=== PATIENT | male | born 1965 | race African-American/Black ===

== ENCOUNTER 2018-04-11 09:48 | Inpatient (IN) | payer OTHER ==
[~2018-04-11 09:48] MED LIST: EPHEDrine SULFATE 50 MG/5 ML SYG; PROPOFOL 200 MG INJ
[2018-04-11] MEDS ORDERED: VANCOMYCIN 1 GM (PMX) 250 ML (10:44)
[2018-04-11] MEDS ORDERED: GELATIN SIZE 100 SPONGE (11:22)
[2018-04-11] MEDS ORDERED: MIDAZOLAM 1 MG/ML 2 ML INJ (11:57)
[2018-04-11] MEDS ORDERED: SUCCINYLCHOLINE CHLORIDE 100 MG/5 ML SYG IV (11:59)
[2018-04-11] MEDS ORDERED: PROPOFOL 20 ML (11:59)
[2018-04-11] MEDS ORDERED: ROCURONIUM 50 MG INJ ×2 (11:59→13:16)
[2018-04-11] MEDS ORDERED: LIDOCAINE 2% (SDV) 5 ML INJ (11:59)
[2018-04-11] MEDS ORDERED: CEFAZOLIN 1 GM INJ (11:59)
[2018-04-11] MEDS ORDERED: NALOXONE (0.4 MG/ML) INJ IV (12:00)
[2018-04-11] MEDS ORDERED: DIPHENHYDRAMINE 50 MG INJ IV (12:00)
[2018-04-11] MEDS ORDERED: ZOLPIDEM 5 MG TAB PO (12:00)
[2018-04-11] MEDS ORDERED: CYCLOBENZAPRINE 10 MG TAB PO (12:00)
[2018-04-11] MEDS ORDERED: HYDROmorphONE 0.5 MG/0.5 ML SYG IV (12:00)
[2018-04-11] MEDS ORDERED: AL HYDROX/MG HYDROX/SIMETH 30 ML CUP PO (12:00)
[2018-04-11] MEDS ORDERED: ACETAMINOPHEN 325 MG TAB PO (12:00)
[2018-04-11] MEDS ORDERED: BISACODYL 10 MG SUPP PR (12:00)
[2018-04-11] MEDS ORDERED: ONDANSETRON 4 MG INJ IV (12:00)
[2018-04-11] MEDS ORDERED: CEPASTAT LOZENGE MT (12:00)
[2018-04-11] MEDS: HEPARIN 1000 UNITS/ML 10 ML INJ ×2 (13:05→13:11)
[2018-04-11] MEDS: BUPIVACAINE 0.25%/EPI (MDV) 50 ML VIAL INJ (13:11)
[2018-04-11] MEDS ORDERED: PHENYLephrine (100 MCG/ML) 5ML SYG (13:22)
[2018-04-11] MEDS: SURGIFOAM POWDER 1 GM KIT (13:44)
[2018-04-11] MEDS: THROMBIN 5000 UNIT VIAL (13:45)
[2018-04-11] MEDS: POLYMYXIN/BACITRACIN 1L IRRIG (13:46)
[2018-04-11] MEDS: CA CHLORIDE 10% 10 ML SYRINGE (13:52)
[2018-04-11] MEDS: FENTAnyl 50 MCG/ML VIAL (15:12)
[2018-04-11] MEDS: BUPIVACAINE 0.25% (MPF) 30 ML INJ (15:13)
[2018-04-11] MEDS ORDERED: FAMOTIDINE 20 MG INJ (15:16)
[2018-04-11] MEDS ORDERED: METOCLOPRAMIDE 10 MG INJ (15:16)
[2018-04-11] MEDS ORDERED: ONDANSETRON 4 MG INJ (15:16)
[2018-04-11] MEDS ORDERED: SUGAMMADEX SODIUM 200 MG/2 ML VIAL IV (15:21)
[2018-04-11] MEDS ORDERED: HYDROmorphONE 1 MG/5 ML IV SYRINGE IV ×3 (16:00)
[2018-04-11] MEDS ORDERED: LABETALOL HCL 20MG INJ IV (16:00)
[2018-04-11] MEDS ORDERED: MEPERIDINE 25 MG INJ IV (16:00)
[2018-04-11] MEDS ORDERED: FENTAnyl 50 MCG/ML VIAL IV ×2 (16:00)
[2018-04-11] MEDS ORDERED: hydrALAzine 20 MG INJ IV (16:00)
[2018-04-11] MEDS ORDERED: PROCHLORPERAZINE 10 MG INJ IV (16:00)
[2018-04-11] MEDS: HYDROmorphONE 0.2 MG/ML PCA IV (16:08)
[2018-04-11] MEDS: FENTAnyl 50 MCG/ML VIAL IV (16:14)
[2018-04-11] MEDS: ONDANSETRON 4 MG INJ IV (16:14)
[2018-04-11] MEDS: DIPHENHYDRAMINE 50 MG INJ IV (16:14)
[2018-04-11] MEDS ORDERED: GLUCOSE GEL 15 GRAM TUBE PO ×2 (17:00)
[2018-04-11] MEDS ORDERED: LISINOPRIL 20 MG TAB PO (17:00)
[2018-04-11] MEDS ORDERED: DEXTROSE 50% 50 ML SYRINGE IV ×2 (17:00)
[2018-04-11] MEDS ORDERED: GLUCAGON 1 MG INJ IM (17:00)
[2018-04-11] MEDS ORDERED: GLUCOSE GEL 15 GRAM TUBE BUCCAL (17:00)
[2018-04-11] MEDS ORDERED: AMLODIPINE 5 MG TAB PO (17:00)
[2018-04-11] MEDS: INSULIN ASPART [NOVOLOG] 3 ML PEN SC (17:25)
[2018-04-11] MEDS: 1/2 NS + KCL 20 MEQ 1,000 ML IV ×2 (20:26→22:00)
[2018-04-11] MEDS: AMLODIPINE 5 MG TAB PO (20:27)
[2018-04-11] MEDS: ATORVASTATIN 20 MG TAB PO (20:27)
[2018-04-11] MEDS: LISINOPRIL 20 MG TAB PO (20:27)
[2018-04-11] MEDS: DOCUSATE SODIUM 100 MG CAP PO (20:28)
[2018-04-11] MEDS: VANCOMYCIN 1 GM (PMX) 250 ML IVPB (23:15)
[2018-04-12] MEDS: ACCU-CHEK XX (01:45)
[2018-04-12 04:52] LABS: ADD MAN DIFF? NO
[2018-04-12 04:57] LABS: WHITE BLOOD COUNT 14.1 10^3/ul (4.8-10.8)
[2018-04-12 04:57] LABS: ABNORMAL IP MESSAGE 1; BASOPHILS % 0.2 % (0.0-2.0); EOSINOPHILS # 0.1 10^3/ul (0.0-0.5); EOSINOPHILS % 0.8 % (0.0-7.0); HEMATOCRIT 33.7 % (42.0-52.0); HEMOGLOBIN 10.9 g/dl (14.0-18.0); LYMPHOCYTES # 1.9 10^3/ul (0.8-2.9); LYMPHOCYTES % 13.1 % (15.0-51.0); MEAN CORPUSCULAR HEMOGLOBIN 28.8 pg (29.0-33.0); MEAN CORPUSCULAR HGB CONC 32.3 g/dl (32.0-37.0); MEAN CORPUSCULAR VOLUME 88.9 fl (82.0-101.0); MEAN PLATELET VOLUME 10.5 fl (7.4-10.4); MONOCYTE # 1.6 10^3/ul (0.3-0.9); MONOCYTES % 11.5 % (0.0-11.0); NEUTROPHIL # 10.4 10^3/ul (1.6-7.5); NEUTROPHILS % 73.9 % (39.0-77.0); PLATELET COUNT 284 10^3/UL (140-415); POSITIVE DIFF @See below; RED BLOOD COUNT 3.79 10^6/ul (4.70-6.10); RED CELL DISTRIBUTION WIDTH 14.5 % (11.5-14.5)
[2018-04-12 05:21] LABS: ANION GAP 12 (8-16); BLOOD UREA NITROGEN 21 mg/dl (7-20); CALCIUM 8.7 mg/dl (8.4-10.2); CARBON DIOXIDE 29 mmol/L (21-31); CHLORIDE 103 mmol/L (97-110); GLUCOSE 154 mg/dl (70-220); MAGNESIUM 1.9 mg/dl (1.7-2.5); POTASSIUM 4.5 mmol/L (3.5-5.1); SODIUM 139 mmol/L (135-144)
[2018-04-12] MEDS: PANTOPRAZOLE 40 MG INJ IV (05:35)
[2018-04-12] MEDS: HYDROmorphONE 0.2 MG/ML PCA IV (06:50)
[2018-04-12] MEDS: AMLODIPINE 5 MG TAB PO (08:28)
[2018-04-12] MEDS: metFORMIN 500 MG TAB PO ×3 (08:29→17:45)
[2018-04-12] MEDS: DOCUSATE SODIUM 100 MG CAP PO ×2 (08:29→20:34)
[2018-04-12] MEDS: INSULIN ASPART [NOVOLOG] 3 ML PEN SC ×3 (08:32→17:25)
[2018-04-12] MEDS: SOD CHLORIDE 0.9% 1,000 ML IV ×2 (09:07→20:30)
[2018-04-12] MEDS: METOPROLOL (XL) 25 MG TAB PO ×2 (09:09→20:35)
[2018-04-12] MEDS: VANCOMYCIN 1 GM (PMX) 250 ML IVPB (11:34)
[2018-04-12 12:50] LABS: ADD UMIC YES; UR ASCORBIC ACID NEGATIVE (NEGATIVE); UR BACTERIA FEW /HPF (NONE SEEN); UR BILIRUBIN (Dip) NEGATIVE (NEGATIVE); UR BLOOD (Dip) 2+ mg/dL (NEGATIVE); UR CLARITY SLIGHTLY CLOUDY (CLEAR); UR COLOR YELLOW (YELLOW); UR GLUCOSE (Dip) NEGATIVE (NEGATIVE); UR KETONES (Dip) NEGATIVE (NEGATIVE); UR LEUKOCYTE ESTERASE (Dip) NEGATIVE Leu/ul (NEGATIVE); UR MUCUS FEW /HPF (NONE SEEN); UR NITRITE (Dip) NEGATIVE (NEGATIVE); UR RBC 15 /HPF (0-5); UR SPECIFIC GRAVITY (Dip) 1.016 (1.003-1.030); UR TOTAL PROTEIN (Dip) NEGATIVE (NEGATIVE); UR UROBILINOGEN (Dip) NEGATIVE (NEGATIVE); UR WBC 4 /HPF (0-5)
[2018-04-12 13:04] LABS: SODIUM,URINE RANDOM 93 mmol/L (30-90)
[2018-04-12] MEDS: ATORVASTATIN 20 MG TAB PO (20:34)
[2018-04-13] MEDS: ACCU-CHEK XX (02:00)
[2018-04-13] MEDS: HYDROmorphONE 0.2 MG/ML PCA IV (04:51)
[2018-04-13 05:36] LABS: ADD MAN DIFF? NO
[2018-04-13 05:40] LABS: ABNORMAL IP MESSAGE 1; BASOPHILS % 0.3 % (0.0-2.0); EOSINOPHILS # 0.1 10^3/ul (0.0-0.5); EOSINOPHILS % 0.4 % (0.0-7.0); HEMATOCRIT 31.9 % (42.0-52.0); HEMOGLOBIN 10.6 g/dl (14.0-18.0); LYMPHOCYTES # 1.6 10^3/ul (0.8-2.9); LYMPHOCYTES % 12.2 % (15.0-51.0); MEAN CORPUSCULAR HEMOGLOBIN 29.2 pg (29.0-33.0); MEAN CORPUSCULAR HGB CONC 33.2 g/dl (32.0-37.0); MEAN CORPUSCULAR VOLUME 87.9 fl (82.0-101.0); MEAN PLATELET VOLUME 10.7 fl (7.4-10.4); MONOCYTE # 1.6 10^3/ul (0.3-0.9); MONOCYTES % 12.3 % (0.0-11.0); NEUTROPHIL # 9.7 10^3/ul (1.6-7.5); NEUTROPHILS % 74.4 % (39.0-77.0); PLATELET COUNT 259 10^3/UL (140-415); POSITIVE DIFF @See below; RED BLOOD COUNT 3.63 10^6/ul (4.70-6.10); RED CELL DISTRIBUTION WIDTH 13.9 % (11.5-14.5)
[2018-04-13 06:05] LABS: PHOSPHORUS 2.8 mg/dl (2.5-4.9)
[2018-04-13 06:08] LABS: ANION GAP 8 (8-16); BLOOD UREA NITROGEN 17 mg/dl (7-20); CALCIUM 8.5 mg/dl (8.4-10.2); CARBON DIOXIDE 28 mmol/L (21-31); CHLORIDE 105 mmol/L (97-110); CREATININE 1.22 mg/dl (0.61-1.24); GLUCOSE 143 mg/dl (70-220); MAGNESIUM 1.9 mg/dl (1.7-2.5); POTASSIUM 4.6 mmol/L (3.5-5.1); SODIUM 136 mmol/L (135-144)
[2018-04-13] MEDS: PANTOPRAZOLE 40 MG INJ IV (06:29)
[2018-04-13] MEDS: DOCUSATE SODIUM 100 MG CAP PO ×2 (08:51→20:32)
[2018-04-13] MEDS: metFORMIN 500 MG TAB PO ×3 (08:52→17:53)
[2018-04-13] MEDS: AMLODIPINE 5 MG TAB PO (08:53)
[2018-04-13] MEDS: INSULIN ASPART [NOVOLOG] 3 ML PEN SC ×3 (08:53→17:25)
[2018-04-13] MEDS: LISINOPRIL 20 MG TAB PO (08:56)
[2018-04-13] MEDS: SOD CHLORIDE 0.9% 1,000 ML IV (09:30)
[2018-04-13] MEDS ORDERED: HYDROCODONE/APAP (10/325) TAB PO (10:00)
[2018-04-13] MEDS: NICOTINE (21 MG/24 HR) PATCH TRANSDERM (10:25)
[2018-04-13] MEDS: HYDROCODONE/APAP (10/325) TAB PO ×4 (10:26→23:10)
[2018-04-13] MEDS: ATORVASTATIN 20 MG TAB PO (20:32)
[2018-04-14] MEDS: ACCU-CHEK XX (02:00)
[2018-04-14] MEDS: HYDROCODONE/APAP (10/325) TAB PO ×3 (04:51→14:06)
[2018-04-14] MEDS: PANTOPRAZOLE 40 MG INJ IV (04:52)
[2018-04-14 05:03] LABS: ADD MAN DIFF? NO
[2018-04-14 05:06] LABS: BASOPHILS % 0.2 % (0.0-2.0); EOSINOPHILS # 0.1 10^3/ul (0.0-0.5); EOSINOPHILS % 1.1 % (0.0-7.0); HEMATOCRIT 31.3 % (42.0-52.0); HEMOGLOBIN 10.4 g/dl (14.0-18.0); LYMPHOCYTES # 1.6 10^3/ul (0.8-2.9); LYMPHOCYTES % 13.4 % (15.0-51.0); MEAN CORPUSCULAR HEMOGLOBIN 28.8 pg (29.0-33.0); MEAN CORPUSCULAR HGB CONC 33.2 g/dl (32.0-37.0); MEAN CORPUSCULAR VOLUME 86.7 fl (82.0-101.0); MEAN PLATELET VOLUME 10.2 fl (7.4-10.4); MONOCYTE # 1.4 10^3/ul (0.3-0.9); MONOCYTES % 11.8 % (0.0-11.0); NEUTROPHIL # 8.9 10^3/ul (1.6-7.5); NEUTROPHILS % 73.2 % (39.0-77.0); PLATELET COUNT 250 10^3/UL (140-415); RED BLOOD COUNT 3.61 10^6/ul (4.70-6.10); RED CELL DISTRIBUTION WIDTH 13.6 % (11.5-14.5)
[2018-04-14 05:06] LABS: WHITE BLOOD COUNT 12.2 10^3/ul (4.8-10.8)
[2018-04-14 05:43] LABS: ANION GAP 12 (8-16); BLOOD UREA NITROGEN 17 mg/dl (7-20); CALCIUM 8.8 mg/dl (8.4-10.2); CARBON DIOXIDE 27 mmol/L (21-31); CHLORIDE 103 mmol/L (97-110); CREATININE 1.21 mg/dl (0.61-1.24); GLUCOSE 152 mg/dl (70-220); MAGNESIUM 1.7 mg/dl (1.7-2.5); POTASSIUM 4.6 mmol/L (3.5-5.1); SODIUM 137 mmol/L (135-144)
[2018-04-14] MEDS: INSULIN ASPART [NOVOLOG] 3 ML PEN SC ×2 (09:11→13:29)
[2018-04-14] MEDS: DOCUSATE SODIUM 100 MG CAP PO (09:34)
[2018-04-14] MEDS: LISINOPRIL 20 MG TAB PO (09:35)
[2018-04-14] MEDS: metFORMIN 500 MG TAB PO ×2 (09:35→13:27)
[2018-04-14] MEDS: AMLODIPINE 5 MG TAB PO (09:36)
[2018-04-14] MEDS: NICOTINE (21 MG/24 HR) PATCH TRANSDERM (09:40)
[2018-04-16] MEDS ORDERED: VANCOMYCIN 1 GM (PMX) 250 ML IVPB (11:00)
[2018-04-16] MEDS ORDERED: LACTATED RINGER'S 1,000 ML IV* (11:00)
== END 2018-04-14 16:30 | disposition home or self-care (01) | DRG 516 ==
LOC: REC 09:48 → MS1 17:10
PROVIDERS: Specialist
PROC: 01NB0ZZ Release Lumbar Nerve, Open Approach (ICD-10-PCS; principal; 2018-04-11 12:00)
PROC: 4A11X4G Monitoring of Peripheral Nervous Electrical Activity, Intraoperative, External Approach (ICD-10-PCS; 2018-04-11 12:00)
DX: M48.062 Spinal stenosis, lumbar region with neurogenic claudication (principal); N17.9 Acute kidney failure, unspecified; M54.16 Radiculopathy, lumbar region; I10 Essential (primary) hypertension; E11.9 Type 2 diabetes mellitus without complications; Z79.84 Long term (current) use of oral hypoglycemic drugs; K21.9 Gastro-esophageal reflux disease without esophagitis; F17.200 Nicotine dependence, unspecified, uncomplicated
CPT/HCPCS: 71045; 72020; 80048; 81001; 82962; 83735; 84100; 84300; 85025; 86999; 87086; 88304; 88311; 97116; 97163; 97530